=== PATIENT | female | born 1950 | race Caucasian/White ===

== ENCOUNTER 2024-07-11 19:35 | Inpatient (IN) | payer OTHER ==
[2024-07-11 20:21] VITALS: BMI 31.7
[2024-07-11 22:20] VITALS: RESP 18
[2024-07-11 22:21] LABS: BASO % 0.4 % (0-2.0); EOS % 1.5 % (0-4.5); HEMATOCRIT 31.6 % (32.4-45.2); HEMOGLOBIN 10.3 GM/dL (10.7-15.3); LYMPH % 24.5 % (8-40); MCH 27.4 pg (25.7-33.7); MCHC 32.8 g/dl (32.0-36.0); MEAN CELL VOLUME 83.5 fl (80-96); MEAN PLT VOLUME 7.9 fl (7.5-11.1); MONO % 9.7 % (3.8-10.2); NEUT % 63.9 % (42.8-82.8); PLATELET COUNT 195 10^3/uL (134-434); RBC 3.78 M/mm3 (3.60-5.2); RDW 16.1 % (11.6-15.6); WHITE BLOOD COUNT 5.8 K/mm3 (4.0-10.0)
[2024-07-11 22:36] LABS: POTASSIUM 3.6 mmol/L (3.5-5.1)
[2024-07-11 22:37] LABS: INR 1.09 (0.83-1.09); PROTHROMBIN TIME (PATIENT) 12.3 SEC (9.7-13.0)
[2024-07-11 22:38] LABS: ALBUMIN 3.3 g/dl (3.4-5.0); BLOOD UREA NITROGEN 15.5 mg/dL (7-18); CALCIUM 8.6 mg/dL (8.5-10.1)
[2024-07-11 22:39] LABS: ACTIVATED PTT 37.5 SECONDS (25.2-36.5)
[2024-07-11 22:43] LABS: BILIRUBIN,TOTAL 0.7 mg/dL (0.2-1); TOT PROT 6.4 g/dl (6.4-8.2)
[2024-07-11 22:46] LABS: N-TERMINAL BNP 137.8 pg/ml (5-450)
[2024-07-11] MEDS: VANCOMYCIN 1,000 MG in DEXTROSE 5%-WATER - 250 ML IVPB ONE (23:04)
[2024-07-11] MEDS: VANCOMYCIN 1,500 MG in DEXTROSE 5%-WATER - 250 ML IVPB ONE (23:25)
[2024-07-12 03:55] LABS: ERYTHROCYTE SEDIMENTATION RATE 31 mm/hr (0-30)
[2024-07-12] MEDS: levETIRAcetam 500 MG TABLET (FP) PO SCH (09:41)
[2024-07-12] MEDS: POTASSIUM CHLORIDE ORAL LIQUID 20 MEQ/15 ML PO SCH (09:42)
[2024-07-12] MEDS: LACTULOSE 20 GM/30 ML UDC (FOR ORAL USE ONLY) PO SCH (09:42)
[2024-07-12] MEDS ORDERED: PATIENT'S OWN MEDICATION (NON-FORMULARY) (Carbidopa/Levodopa [Carbidopa-Levodopa 10-100 Ta PO SCH (10:00)
[2024-07-12] MEDS ORDERED: CEFAZOLIN SODIUM 2 GM in DEXTROSE 5%-WATER 100 ML IVPB SCH (10:00)
[2024-07-12] MEDS: FUROSEMIDE 40 MG TABLET (FP) PO SCH (10:11)
[2024-07-12] MEDS: ATORVASTATIN CA 80 MG TABLET (FP) PO SCH (22:08)
[2024-07-12] MEDS: MELATONIN 5 MG TABLETS PO SCH (22:08)
[2024-07-12] MEDS: traZODone HCL 50 MG TABLET (FP) PO SCH (22:08)
[2024-07-13 04:12] VITALS: BP 123/78; PULSE 82; TEMP 97.8
== END 2024-07-13 09:45 | DRG 301 ==
LOC: JER 19:35 → JERBED 07-12 02:00 → J6S 07-12 03:28
PROVIDERS: ADMIT Internal Medicine; ATTEND Internal Medicine
DX: I87.2 Venous insufficiency (chronic) (peripheral) (principal); G20.A1 Parkinson's disease without dyskinesia, without mention of fluctuations; G40.909 Epilepsy, unspecified, not intractable, without status epilepticus; E78.5 Hyperlipidemia, unspecified; M25.469 Effusion, unspecified knee; R60.0 Localized edema
CPT/HCPCS: 36415; 70450-TC; 72170-TC-FY; 73562-TC-LT-FY; 73590-TC-LT-FY; 73610-TC-LT-FY; 73630-TC-LT; 73701-TC-RT; 80053; 83036; 83880; 85025; 85610; 85651; 85730; 86140; 86850; 86900; 86901; 87077; 87081; 93005; 93010; 93970-TC; 97116-GP; 97161-GP; 99285-25; Q9967